=== PATIENT | female | born 1935 | race Caucasian/White ===

== ENCOUNTER → 2016-12-08 | Day surgery (SDC) | payer MEDICARE ==
[~2016-12-08] VITALS: Ht 154.9 cm; Wt 63.6 kg
[~2016-12-08] MED LIST: ACETAMINOPHEN 325 MG TAB PO PRN; AMLO5TAB2 PO; ASCO500T PO; ASPI81TA11 PO; CALC1TAB12 PO; CHLORHEXIDINE GLUCONATE 2 % 1 PACK (2 CLOTHS) TOPICAL PRN; CLON0.5T PO; CLON1TAB PO; HYALURONIDASE/LIDOCAINE/EPINEPHRINE/BUPIVACAINE 6 ML SYR LEFT EYE ONE; INSULIN HUMAN REGULAR 1,000 UNITS/10 ML VIAL SQ PRN; LACTATED RINGER'S 1000 ML IV PRN; LEVO50TA53 PO; LIDOCAINE HCL 1% PF 30 ML VIAL ONE; LISI-515 PO; LOVA10TA PO; METO100T PO; METOPROLOL TARTRATE 25 MG TAB PO PRN; OMEP20TA PO; POVIDONE IODINE 5% (ANTISEPSIS KIT) 4 APPLICATIONS EACH NARE PRN; PROPARACAINE HCL 0.5% OPHT SOLN 15 ML BTL LEFT EYE ONE; PROPOFOL 200 MG/20 ML AMP ONE; SODIUM CHLORID 0.9% 500 ML IV PRN; TEMA15CA PO; TOBRAMYCIN/DEXAMETHASONE OPTH OINT 3.5 GM TUBE ONE; TOPR100T PO
[2016-12-08] MEDS: PHENYLEPHRINE HCL 10% OPTH SOLN 5 ML BTL LEFT EYE SCH ×4 (06:50→07:05)
[2016-12-08] MEDS: TROPICAMIDE 1% OPHT SOLN 15 ML BTL LEFT EYE SCH ×4 (06:50→07:05)
[2016-12-08] MEDS: FLURBIPROFEN 0.03% OPHT SOLN 2.5 ML BTL LEFT EYE SCH ×4 (06:50→07:05)
[2016-12-08] MEDS: CYCLOPENTOLATE HCL 1% OPHT SOLN 2 ML BTL LEFT EYE SCH ×4 (06:50→07:05)
[2016-12-08 07:00] VITALS: PULSE 66
[2016-12-08 07:08] VITALS: BP 190/84; PULSE 68; RESP 20; TEMP 98.2; O2SAT 98
[2016-12-08 07:28] VITALS: PULSE 63
[2016-12-08 09:00] VITALS: BP 163/79; PULSE 90; RESP 16; TEMP 97.8; O2SAT 95
--- NOTE | 2016-12-08 10:50 | MP ---
cc: JULIOCESAR BANSAL M.D. [facility] #: [id number] DATE: 12/08/2016 PREOPERATIVE DIAGNOSIS: Visually significant cataract left eye. POSTOPERATIVE DIAGNOSIS: Visually significant cataract left eye. OPERATION: Phacoemulsification with posterior chamber lens implantation, left eye. SURGEON: Juliocesar Bansal MD ANESTHESIA: Retrobulbar with MAC. COMPLICATIONS: None. PROCEDURE: After informed consent was obtained, the patient was brought into the operative suite and placed on appropriate monitors by the Anesthesia Service. The patient had received a prior retrobulbar injection of local anesthetic by the Anesthesia Service in the holding area. The patient's operative eye was then prepped and draped in the usual sterile fashion. A wire lid speculum was placed. A paracentesis incision was made in the peripheral cornea with a 1 mm nabil keratome. The anterior chamber was filled with viscoelastic. The anterior chamber was then entered through a stepped, clear corneal incision using a sharp 3 mm nabil keratome. A circular tear capsulorrhexis was then made with a bent needle cystitome. Following hydrodissection of the lens nucleus with balanced saline, phacoemulsification of the nucleus was performed using a modified chopping technique. The remaining cortex was removed with irrigation/aspiration. The prior two procedures were both performed using the handpieces of the [employer] phaco unit. The capsular bag was then filled with viscoelastic. The intraocular lens was then injected into the capsular bag and positioned. The type of intraocular lens and its power can be found elsewhere in this chart. The remaining viscoelastic was then removed from the anterior chamber with the IA handpiece. The anterior chamber was reformed with balanced saline. The wound was then closed securely with stromal hydration. It was found to be watertight to an intraocular pressure of at least 30 mmHg by palpation. A small amount of balanced salt solution was then removed through the paracentesis site and the intraocular pressure at the end of the case was approximately 20 by palpation. All drapes were then removed. TobraDex ointment was then placed in the eye, which was closed beneath a semi-pressure patch dressing. The patient tolerated this procedure well and left the operating room awake and alert. The patient is to follow-up in my office in the morning. MD LAISHA Ham/SSB /10:29 AM /10:47 AM
== END | disposition home or self-care (01) ==
LOC: PHSDC 06:04
PROVIDERS: ATTEND Optometrist Occupational Vision
DX: H25.812 Combined forms of age-related cataract, left eye (principal); H04.123 Dry eye syndrome of bilateral lacrimal glands; H34.8312 Tributary (branch) retinal vein occlusion, right eye, stable; G25.0 Essential tremor; E78.5 Hyperlipidemia, unspecified; I12.9 Hypertensive chronic kidney disease with stage 1 through stage 4 chronic kidney disease, or unspecified chronic kidney disease; N18.9 Chronic kidney disease, unspecified; K21.9 Gastro-esophageal reflux disease without esophagitis; E03.9 Hypothyroidism, unspecified; G47.00 Insomnia, unspecified; M85.80 Other specified disorders of bone density and structure, unspecified site; L71.9 Rosacea, unspecified; R49.0 Dysphonia; G51.0 Bell's palsy; F43.23 Adjustment disorder with mixed anxiety and depressed mood; I70.0 Atherosclerosis of aorta; Z96.1 Presence of intraocular lens; Z79.82 Long term (current) use of aspirin; Z79.899 Other long term (current) drug therapy
CPT/HCPCS: 00142; 66984; J7040; V2632

== ENCOUNTER 2017-04-22 09:22 | Inpatient (IN) | payer MEDICARE ==
[2017-04-22] VITALS (9 sets, daily range): BP systolic 125–200; BP diastolic 59–82; PULSE 63–87; RESP 14–20; TEMP 97.5–98.4; O2SAT 95–100
[~2017-04-22] VITALS: Ht 165.1 cm; Wt 65.9 kg
[~2017-04-22 09:22] MED LIST changes: -ACETAMINOPHEN 325 MG TAB PO PRN; -ASPI81TA11 PO; +ASPI81TA23 PO; -CHLORHEXIDINE GLUCONATE 2 % 1 PACK (2 CLOTHS) TOPICAL PRN; -CLON0.5T PO; -HYALURONIDASE/LIDOCAINE/EPINEPHRINE/BUPIVACAINE 6 ML SYR LEFT EYE ONE; -INSULIN HUMAN REGULAR 1,000 UNITS/10 ML VIAL SQ PRN; -LACTATED RINGER'S 1000 ML IV PRN; -LIDOCAINE HCL 1% PF 30 ML VIAL ONE; -METO100T PO; -METOPROLOL TARTRATE 25 MG TAB PO PRN; -OMEP20TA PO; +OMEP20TA93 PO; -POVIDONE IODINE 5% (ANTISEPSIS KIT) 4 APPLICATIONS EACH NARE PRN; -PROPARACAINE HCL 0.5% OPHT SOLN 15 ML BTL LEFT EYE ONE; -PROPOFOL 200 MG/20 ML AMP ONE; -SODIUM CHLORID 0.9% 500 ML IV PRN; -TOBRAMYCIN/DEXAMETHASONE OPTH OINT 3.5 GM TUBE ONE
[2017-04-22] MEDS ORDERED: CODOIL2 PO (09:46)
[2017-04-22] MEDS ORDERED: METR0.7533 TOPICAL (09:46)
--- NOTE | 2017-04-22 10:54 | PD ---
HPI Chief Complaint: Fall Time Seen by Provider: 09:46 Travel History International Travel<30 days: No Contact w/Intl Traveler<30days: No Traveled to known affect area: No History of Present Illness HPI 82yo F with PMH of HTN, HLD, hypothyroidism was sent here from her PMD's office for CT scan. Pt said she got up to go to the bathroom in the middle of the night 2 days ago and was half asleep and when she tried to climb back into bed she slipped and hit her face on the bedside table. Denies any LOC, dizziness, chest pain, sob, n/v, abdominal pain, focal weakness or numbness. Pt had headache but no longer has any headache right now. As per paperwork from the clinic visit today, "patient has elected to go to ER as we cannot complete outpatient CT at this time." Pt's friend is with her and said she is acting like her normal self. PFSH Past Medical History Autoimmune Disease: No Blood Disorders: No Anxiety: Yes Depression: Yes (MILD) Heart Rhythm Problems: Yes (TACHYCARDIA) Cancer: No Cardiovascular Problems: Yes (ATHEROSCLEROSIS OF AORTA) High Cholesterol: No Chemotherapy: No Chest Pain: No Congestive Heart Failure: No Diabetes: No Diminished Hearing: Yes ([place]) Endocrine: Yes Gastrointestinal Disorders: Yes (GERD, CONSTIPATION/ DIARRHEA) GERD: Yes Genitourinary: Yes (OVERACTIVE BLADDER) Hepatitis: No Hiatal Hernia: No Hypertension: Yes Immune Disorder: No Medical other: Yes (INSOMNIA) Musculoskeletal: Yes (ARTHRITIS) Neurologic: Yes (BENIGN ESSENTIAL TREMOR, SPASMODIC DYSPHONIA, BELLS PALSY) Psychiatric: Yes (ANXIETY, ADJUSTMENT DISORDER WITH DEPRESSED MOOD) Reproductive: No Respiratory: No Immunizations Current: Yes Myocardial Infarction: No Radiation Therapy: No Thyroid Disease: Yes (HYPOTHYROIDISM) Menopausal: Yes Past Surgical History Abdominal Surgery: Yes (APPENDECTOMY) AICD: No Appendectomy: Yes Cardiac Surgery: No Ear Surgery: No Endocrine Surgery: No Eye Surgery: Yes (RIGHT PHACO CATARACT) Genitourinary Surgery: No Gynecologic Surgery: Yes (HYSTERECTOMY) Hysterectomy: Yes Joint Replacement: No Neurologic Surgery: No Oral Surgery: Yes (TONSILLECTOMY) Pacemaker: No Thoracic Surgery: Yes (LEFT BREAST BIOPSY) Tonsillectomy: Yes Other Surgery: Yes Social History Alcohol Use: No Tobacco Use: No Substance Use: No Allergies-Medications (Allergen,Severity, Reaction): Coded Allergies: codeine (Unverified Allergy, Severe, Nausea/Vomiting, 04/22/17) meperidine (Unverified Allergy, Severe, Nausea/Vomiting, 04/22/17) metoprolol (Unverified Allergy, Severe, Arrhythmias, 04/22/17) penicillin G (Unverified Allergy, Severe, pt denies allergy, 04/22/17) risedronate sodium (Unverified Allergy, Mild, 04/22/17) PT IS UNCERTAIN IF SHE IS ALLERGIC TO THIS MEDICATION Reported Meds & Prescriptions Reported Meds & Active Scripts Active Reported Rosadan Topical 0.75% (Metronidazole Topical 0.75%) 0.75% Gel 1 Applic TOPICAL BID Cod Liver Oil 5,000-500 Unit/5Ml Oil 5 Ml PO DAILY Lovastatin 10 Mg Tab 10 Mg PO DAILY Clonazepam 1 Mg Tab 1 Mg PO BID Toprol XL (Metoprolol Succinate) 100 Mg Tab 100 Mg PO HS Amlodipine (Amlodipine Besylate) 5 Mg Tab 5 Mg PO DAILY Aspirin EC (Aspirin) 81 Mg Tabdr 81 Mg PO DAILY Calcium 500 +D (Calcium Carbonate-Cholecalciferol) 500-400 Mg-Unit Tab 1 Tab PO DAILY Levoxyl (Levothyroxine Sodium) 50 Mcg Tab 50 Mcg PO DAILY Lisinopril 20 Mg Tab 20 Mg PO DAILY Omeprazole 20 Mg Tab 20 Mg PO DAILY Temazepam 15 Mg Cap 15 Mg PO HS PRN Ascorbic Acid 500 Mg Tab 500 Mg PO DAILY Review of Systems Except as stated in HPI: all other systems reviewed are Neg Physical Exam Narrative GENERAL: 82yo F not in distress. SKIN: Focused skin assessment warm/dry. HEAD: Ecchymoses in left maxilla. Some ttp occiput but no swelling or bleeding. EYES: Pupils equal and round. No scleral icterus. No injection or drainage. ENT: No nasal bleeding or discharge. Mucous membranes pink and moist. NECK: Trachea midline. No JVD. CARDIOVASCULAR: Regular rate and rhythm. No murmur appreciated. RESPIRATORY: No accessory muscle use. Clear to auscultation. Breath sounds equal bilaterally. GASTROINTESTINAL: Abdomen soft, non-tender, nondistended. MUSCULOSKELETAL: RUE: +Ecchymose and swelling in thumb and wrist with some ttp. Radial pulse 2+. Sensation intact. Left hand: Mild erythema dorsum of left hand. No ttp. Radial pulse 2+. Sensation intact. NEUROLOGICAL: Awake and alert. No obvious cranial nerve deficits. Motor grossly within normal limits. Stuttering but friend said this is her normal speech. Data Data Last Documented VS Vital Signs Date Time Temp Pulse Resp B/P (MAP) Pulse Ox O2 Delivery O2 Flow Rate FiO2 04/22/17 13:00 64 14 163/71 (101) 96 Room Air 04/22/17 09:[address] Brain W/O Iv Contrast(Rout) (04/22/17 ) Ct Cerv Spine W/O Contrast (04/22/17 ) Ct Facial Bones W/O Iv Cont (04/22/17 ) Hand, Limited (2vws) (04/22/17 ) Hand, Limited (2vws) (04/22/17 ) Wrist, Limited (Ap&Lat) (04/22/17 ) Acetaminophen (Tylenol) (04/22/17 11:15) Complete Blood Count With Diff (04/22/17 11:45) Basic Metabolic Panel (Bmp) (04/22/17 11:45) Prothrombin Time / Inr (Pt) (04/22/17 11:45) Act Partial Throm Time (Ptt) (04/22/17 11:45) Type And Screen (04/22/17 11:45) Consult Neurosurgery (04/22/17 ) (Hub Use Only)Inp Phy Cons/Ref (04/22/17 ) Admit Order (Ed Use Only) (04/22/17 13:23) Labs Laboratory Tests Test 04/22/17 12:00 White Blood Count 5.6 TH/MM3 Red Blood Count 4.63 MIL/MM3 Hemoglobin 13.6 GM/DL Hematocrit 40.7 % Mean Corpuscular Volume 87.8 FL Mean Corpuscular Hemoglobin 29.4 PG Mean Corpuscular Hemoglobin Concent 33.5 % Red Cell Distribution Width 13.0 % Platelet Count 179 TH/MM3 Mean Platelet Volume 9.1 FL Neutrophils (%) (Auto) 54.4 % Lymphocytes (%) (Auto) 34.2 % Monocytes (%) (Auto) 8.0 % Eosinophils (%) (Auto) 3.0 % Basophils (%) (Auto) 0.4 % Neutrophils # (Auto) 3.0 TH/MM3 Lymphocytes # (Auto) 1.9 TH/MM3 Monocytes # (Auto) 0.4 TH/MM3 Eosinophils # (Auto) 0.2 TH/MM3 Basophils # (Auto) 0.0 TH/MM3 CBC Comment DIFF FINAL Differential Comment Prothrombin Time 10.7 SEC Prothromb Time International Ratio 1.1 RATIO Activated Partial Thromboplast Time 26.3 SEC Blood Urea Nitrogen 10 MG/DL Creatinine 0.61 MG/DL Random Glucose 90 MG/DL Calcium Level 8.9 MG/DL Sodium Level 140 MEQ/L Potassium Level 4.1 MEQ/L Chloride Level 106 MEQ/L Carbon Dioxide Level 28.3 MEQ/L Anion Gap 6 MEQ/L Estimat Glomerular Filtration Rate 94 ML/MIN MDM Medical Decision Making Medical Screen Exam Complete: Yes Emergency Medical Condition: Yes Differential Diagnosis Contusion vs. ICH vs. fracture Narrative Course 82yo F sent her for CT scan after what appears to be mechanical fall 2 days ago. Pt is with her friend and is acting like herself. CT cervical spine showed no acute fracture or prevertebral soft tissue swelling. Bilateral hand xray negative. Xray right wrist negative. CT brain showed two left parafalcine high density collections within left parietal region measuring 2.3 x 0.6cm and 0.9cm x 0.4cm suggestive of probably acute subdural hematomas. CT facial showed acute fracture lateral wall of left orbit as well as anterior, medial and inferior hernández of left maxillary sinus. Consult placed for maxillofacial and discussed with Dr. Cardenas who is aware of the patient. Pt denies any visual changes and extraocular muscles intact. Labs reviewed, no leukocytosis. H/H normal. BMP unremarkable. Discussed with Dr. Otto ( neurosurgery) and he came to evaluate the patient. Recommends repeat CT brain in morning and neurochecks Q2hr. Discussed with instrumentation technologist Dr. Mcguire and accepted to his service. Pt's son Urbano is the power of commercial real estate attorney and lives in [place] [phone]. Critical Care Narrative Aggregate critical care time was 40 minutes. Time to perform other separately billable procedures was not included in the critical care time. My time did not include minutes spent treating any other patients simultaneously or on activities that did not directly contribute to the patient's treatment. The services I provided to this patient were to treat and/or prevent clinically significant deterioration that could result in: cardiovascular collapse or . I provided critical care services requiring my management, as noted below: Chart data review, documentation time, medication orders and management, vital sign assessments/reviewing monitor data, ordering and reviewing lab tests, ordering and interpreting/reviewing x- rays and diagnostic studies, care of the patient and discussion of the patient with the admitting physicians. Diagnosis Primary Impression: Subdural bleeding Admitting Information Admitting Physician Requests: Fadumo Villanueva DO Apr 22, 2017 10:54
--- NOTE | 2017-04-22 11:00 | RADRPT ---
EXAM DATE/TIME: 04/22/2017 10:19 [facility] COMPARISON: No previous studies available for comparison. INDICATIONS : Trauma, fall two days ago onto table. RADIATION DOSE: 56.35 CTDIvol (mGy) MEDICAL HISTORY : Hypertension. SURGICAL HISTORY : Hysterectomy. ENCOUNTER: Initial ACUITY: 2 days PAIN SCALE: 5/10 LOCATION: Bilateral head TECHNIQUE: Multiple contiguous axial images were obtained of the head. Using automated exposure control and adj ustment of the mA and/or kV according to patient size, radiation dose was kept as low as reasonably a chievable to obtain optimal diagnostic quality images. DICOM format image data is available electro nically for review and comparison. FINDINGS: CEREBRUM: The ventricles are normal for age. There is evidence of two left parafalcine high density collections within the left parietal region measuring 2.3 x 0.6 cm and 0.9 x 0.4 cm suggestive of probable acute subdural hematomas. No midline shift is noted. POSTERIOR FOSSA: The cerebellum and brainstem are intact. The 4th ventricle is midline. The cerebellopontine angle i s unremarkable. EXTRACRANIAL: The visualized portion of the orbits is intact. SKULL: The calvaria is intact. No evidence of skull fracture. CONCLUSION: Two left parafalcine high density collections within the left parietal region measuri ng 2.3 x 0.6 cm and 0.9 x 0.4 cm suggestive of probable acute subdural hematomas. Sedrick Fernandez MD on April 22, 2017 at 10:54 Board Certified Radiologist. This report was verified electronically.
--- NOTE | 2017-04-22 11:05 | RADRPT ---
EXAM DATE/TIME: 04/22/2017 10:23 [facility] COMPARISON: No previous studies available for comparison. INDICATIONS : Trauma, fall two days ago onto table. RADIATION DOSE: 26.35 CTDIvol (mGy) MEDICAL HISTORY : Hypertension. SURGICAL HISTORY : Hysterectomy. ENCOUNTER: Initial ACUITY: 2 days PAIN SCORE: 6/10 LOCATION: Left cheek TECHNIQUE: Volumetric scanning of the facial bones was performed. Using automated exposure control and adjustme nt of the mA and/or kV according to patient size, radiation dose was kept as low as reasonably achiev able to obtain optimal diagnostic quality images. DICOM format image data is available electronicall y for review and comparison. FINDINGS: ORBITS: There is subtle acute fracture involving the lateral wall the left orbit. The retroconal structures h ave a normal configuration. No radiopaque foreign bodies are seen. NASAL BONE: The nasal bone and maxillary spine are intact ZYGOMATIC ARCHES: Symmetric without evidence of fracture. SINUSES: There are acute fractures involving the anterior, medial and inferior hernández of the left maxillary sin us. Minimal mucosal thickening is noted involving left maxillary sinus. The ethmoid and frontal sinus es are intact. No air-fluid levels seen. NASAL CAVITY: The nasal septum is intact and midline. The lacrimal ducts are intact. SOFT TISSUES: No radiopaque foreign bodies seen. No soft-tissue swelling is seen. INTRACRANIAL: No intracranial air seen. CRIBIFORM PLATE: Grossly intact. CONCLUSION: 1. Acute fractures involving the lateral wall of left orbit, as well as the anterior, medial and infe rior hernández of the left maxillary sinus. 2. Minimal mucosal thickening is noted involving the maxillary sinus Sedrick Fernandez MD on April 22, 2017 at 10:58 Board Certified Radiologist. This report was verified electronically.
--- NOTE | 2017-04-22 11:13 | RADRPT ---
EXAM DATE/TIME: 04/22/2017 10:23 [facility] COMPARISON: No previous studies available for comparison. INDICATIONS : Trauma, fall two days ago onto table. RADIATION DOSE: 22.22 CTDIvol (mGy) MEDICAL HISTORY : Hypertension. SURGICAL HISTORY : Hysterectomy. ENCOUNTER: Initial ACUITY: 1 day PAIN SCALE: 5/10 LOCATION: Bilateral neck TECHNIQUE: Volumetric scanning of the cervical spine was performed. Multiplanar reconstructions in the sagittal, coronal and oblique axial planes were performed. Using automated exposure control and adjustment o f the mA and/or kV according to patient size, radiation dose was kept as low as reasonably achievable to obtain optimal diagnostic quality images. DICOM format image data is available electronically f or review and comparison. FINDINGS: There is no acute fracture or prevertebral soft tissue swelling. Cervical spondylosis is noted at C5- 6, C6-7, and to lesser extent at C3-4 and C4-5. Moderate spinal stenosis is noted at C5-6 and mild sp inal stenosis is noted at C4-5 and C6-7. Moderate bilateral foraminal narrowing is noted at C3-4, C4- 5, C5-6 and C6-7 and mild bilateral foraminal narrowing is noted C7-T1. The bony relationship and ali gnment between C1 and C2 is well maintained. CONCLUSION: 1. No acute fracture or prevertebral soft tissue swelling. 2. Moderate spinal stenosis at C5-6 and mild spinal stenosis at C4-5 and C6-7. 3. Moderate bilateral foraminal narrowing at C3-4, C4-5, C5-6 and C6-7 and mild bilateral foraminal n arrowing at C7-T1. Sedrick Fernandez MD on April 22, 2017 at 11:05 Board Certified Radiologist. This report was verified electronically.
[2017-04-22] MEDS ORDERED: ACETAMINOPHEN 500 MG CPLT PO ONE (11:15)
--- NOTE | 2017-04-22 12:12 | RADRPT ---
EXAM DATE/TIME: 04/22/2017 11:13 [facility] COMPARISON: No previous studies available for comparison. INDICATIONS : Left hand pain, bruising post fall today MEDICAL HISTORY : None. SURGICAL HISTORY : None. ENCOUNTER: Initial ACUITY: 1 day PAIN SCORE: 5/10 LOCATION: Left entire hand FINDINGS: No acute fracture or dislocation is noted. Diffuse osteoporosis is noted. No significant joint space narrowing is noted. CONCLUSION: 1. No acute fracture or dislocation. 2. Diffuse osteoporosis. 3. No significant joint space narrowing noted. Sedrick Fernandez MD on April 22, 2017 at 12:08 Board Certified Radiologist. This report was verified electronically.
--- NOTE | 2017-04-22 12:13 | RADRPT ---
EXAM DATE/TIME: 04/22/2017 11:16 [facility] COMPARISON: HAND RIGHT LIMITED (2VWS), April 22, 2017, 11:17. INDICATIONS : Right wrist pain post fall today MEDICAL HISTORY : None. SURGICAL HISTORY : None. ENCOUNTER: Initial ACUITY: 1 day PAIN SCORE: 5/10 LOCATION: Right entire wrist FINDINGS: Osteoporosis is noted. There is no acute fracture or dislocation of the right wrist. Possible old unu nited ulnar styloid process fracture is noted. CONCLUSION: 1. No acute fracture or dislocation. 2. Possible old ununited ulnar styloid fracture. 3. Diffuse osteoporosis. Sedrick Fernandez MD on April 22, 2017 at 12:10 Board Certified Radiologist. This report was verified electronically.
--- NOTE | 2017-04-22 12:16 | RADRPT ---
EXAM DATE/TIME: 04/22/2017 11:17 [facility] COMPARISON: No previous studies available for comparison. INDICATIONS : Right hand pain, bruising post fall MEDICAL HISTORY : None. SURGICAL HISTORY : None. ENCOUNTER: Initial ACUITY: 1 day PAIN SCORE: 5/10 LOCATION: Right entire hand FINDINGS: Diffuse osteoporosis is noted. There is no acute fracture or dislocation. Mild osteoarthritis is note d involving the first carpometacarpal joint, scaphotrapezium and scaphotrapezoid joints and the inter phalangeal joints of the right hand. Probable old ununited ulnar styloid process fracture is noted. CONCLUSION: 1. No acute fracture or dislocation. 2. Mild osteoarthritis as described above. 3. Probable old ununited ulnar styloid process fracture. 4. Diffuse osteoporosis. Sedrick Fernandez MD on April 22, 2017 at 12:12 Board Certified Radiologist. This report was verified electronically.
[2017-04-22 12:23] LABS: BASOPHIL % 0.4 % (0.0-2.0); EOSINOPHIL # 0.2 TH/MM3 (0-0.4); HEMATOCRIT 40.7 % (35.0-46.0); HEMO FLAGS DIFF FINAL; LYMPH % 34.2 % (9.0-44.0); LYMPHOCYTE # 1.9 TH/MM3 (1.0-4.8); MEAN CELL VOLUME 87.8 FL (80.0-100.0); MEAN CORPUSCULAR HEMOGLOBIN 29.4 PG (27.0-34.0); MEAN CORPUSCULAR HGB CONC 33.5 % (32.0-36.0); NEUT % 54.4 % (16.0-70.0); PLATELET COUNT 179 TH/MM3 (150-450); RED BLOOD COUNT 4.63 MIL/MM3 (4.00-5.30); WHITE BLOOD COUNT 5.6 TH/MM3 (4.0-11.0)
[2017-04-22 12:34] LABS: APTT (PATIENT) 26.3 SEC (24.3-30.1); INTERNATIONAL NORMALIZED RATIO 1.1 RATIO; PROTHROMBIN TIME - PATIENT 10.7 SEC (9.8-11.6)
[2017-04-22 12:41] LABS: BICARBONATE 28.3 MEQ/L (21.0-32.0); POTASSIUM 4.1 MEQ/L (3.5-5.1)
--- NOTE | 2017-04-22 13:01 | HHI.NSPN ---
fall History Interval History 82y/o female who sustained a fall at home 2 days ago. Denies LOC. Saw PCP today due to headache and sent to [facility] for CT. CT was abnormal and neurosurgery consult placed. Pt complains of mild headache which is intermittent. No neck pain PMH: Depression, tachycardia, hard of hearing, overactive bladder, GERD, diarrhea, Hypothyroidism,essential tremor, recent cataract surgery Allergies: codeine, demerol, metoprolol, penicillin, risedronate Meds: Lovastatin, clonazepam, Toprol XL, ASA, Temazepam, lisinopril, amlodipine System Review Comments see above Exam Results Vital Signs Date Time Temp Pulse Resp B/P (MAP) Pulse Ox O2 Delivery O2 Flow Rate FiO2 04/22/17 11:00 71 18 153/70 (97) 96 Room Air 04/22/17 09:26 98.2 Physical Examination Alert and awake, Follows commands, right handed, oriented x 3, CN: Hard of hearing Pupils equal and reactive Motor 5/5 Sensory intact to touch DTRs UE 1+ KJ 2+ ankle neg Silent babinski Lab, Micro, Other Results Labs reviewed CT of head evidence of small falcine hemorrhage CT of C spine deg changes Medical Decision Making Impression and Plan Imp: Falcine hemorrhage. No surgery needed Rec: observation in ICU Repeat CT in AM Neuro checks every 2 hours Total Minutes: 45 Wes Otto MD Apr 22, 2017 13:01
[2017-04-22] MEDS ORDERED: MISCELLANEOUS NURSING INFORMATION XX SCH (13:30)
[2017-04-22] MEDS ORDERED: LACTULOSE SYRUP 20 GM/30 ML CUP PO PRN (13:30)
[2017-04-22] MEDS ORDERED: SODIUM CHLORIDE 0.9% FLUSH 10 ML FLUSH IV FLUSH PRN (13:30)
[2017-04-22] MEDS ORDERED: MAGNESIUM HYDROXIDE SUSP 30 ML CUP PO PRN (13:30)
[2017-04-22] MEDS ORDERED: BISACODYL 10 MG SUPP RECTAL PRN (13:30)
[2017-04-22] MEDS ORDERED: CHLORHEXIDINE GLUCONATE 2 % 1 PACK (2 CLOTHS) TOP PRN (13:30)
[2017-04-22] MEDS ORDERED: RESP: ALBUTEROL 2.5 MG/IPRATROPIUM 0.5 MG NEB (PRN) INH (13:30)
[2017-04-22] MEDS ORDERED: SENNOSIDES 8.6 MG TAB PO PRN (13:30)
[2017-04-22] MEDS ORDERED: hydrALAZINE HCL 20 MG/ML VIAL IV PUSH PRN (13:45)
[2017-04-22] MEDS: SODIUM CHLOR 0.9% 1000 ML INJ 1,000 ML IV SCH (14:00)
--- NOTE | 2017-04-22 14:22 | MB ---
cc: CINDY STEINBERG DATE OF CONSULTATION: 04/22/2017. REASON FOR CONSULTATION / CHIEF COMPLAINT: Fall. HISTORY OF PRESENT ILLNESS: This is an 82-year-old female patient with multiple medical problems. She was seen today at her primary care physician's office and sent to [facility] for a CT scan. The patient reports that approximately two days ago she got up in the middle of the night and upon return to her bed, she slipped and fell hitting her face on the bedside table. She denies any loss of consciousness. Because of a persistent mild headache, she was seen by her primary care physician today and sent as stated above for a CT scan. Because of abnormal CT scan, neurosurgery consultation has been placed. Presently the patient complains of a mild headache, which is intermittent. She denies any other problems. PAST MEDICAL HISTORY: Her past medical history is remarkable for: 1. Atherosclerosis. 2. Tachycardia. 3. Depression. 4. Hard of hearing. 5. Gastroesophageal reflux disease (GERD). 6. Constipation. 7. Diarrhea. 8. Overactive bladder. 9. Insomnia. 10. Arthritis. 11. Benign essential tremor. 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 13. Anxiety. 14. Adjustment disorder. 15. Hypothyroidism. ALLERGIES: 1. CODEINE. 2. MEPERIDINE. 3. METOPROLOL. 4. PENICILLIN G. 5. RISEDRONATE. MEDICATIONS: Her medications include: 1. Lovastatin. 2. Clonazepam. 3. Toprol XL. 4. Amlodipine. 5. Aspirin. 6. Calcium. 7. Levoxyl. 8. Lisinopril. 9. Omeprazole. 10. Temazepam. 11. Ascorbic acid. 12. Cod liver. 13. rosadan topical. REVIEW OF SYSTEMS: Her review of systems is unremarkable except for those items mentioned above. PHYSICAL EXAMINATION: GENERAL PHYSICAL EXAM: Shows a well-developed anxious female in mild distress. She is alert and awake. VITAL SIGNS: Her vital signs at the present time include a temperature of 98.2, pulse of 71, respirations 18, blood pressure 153/70, pulse oximetry of 96%. HEAD: Examination of the head shows some ecchymosis in the area of the left orbit. NECK: The neck is supple with no pain. CHEST: Symmetrical. LUNGS: Clear. HEART: Regular rhythm with normal heart sounds. ABDOMEN: Abdomen soft and nontender. EXTREMITIES: Clear with some ecchymosis in the area of the hands bilaterally. NEUROLOGIC: Neurologically the patient is alert and awake. She follows commands well. She is oriented x3. She is right-handed. Cranial nerves II through XII are intact. She has a history of recent cataract surgery on the left. She is hard of hearing. Motor exam is 5+/5. Sensory exam is intact to touch. Deep tendon reflexes are 1+ in the upper extremities and 2+ at the knees jerks and absent in the knee jerks. She has silent Babinski bilaterally. IMAGING STUDIES: Review of a CT scan of the brain shows evidence of a falcine hemorrhage with a little mass effect. CT scan of the cervical spine shows degenerative changes. IMPRESSION: Traumatic falcine hemorrhage. PLAN: The plan is to admit the patient to the intensive care unit for observation overnight with neuro checks every two hours and head elevated with a repeat CT in the morning. This was discussed with the patient. MD JENNIFER Polanco/BELLA /1:04 PM /1:57 PM JOCELYN
--- NOTE | 2017-04-22 15:06 | HHI.HP ---
HPI Service Critical Care Medicine Primary Care Physician Da White D.O. Admission Diagnosis Subdural hematoma Diagnosis: (1) Acute subdural hemorrhage Diagnosis: Principal (2) Facial fracture due to fall Chief Complaint: S/p fall with acute SDH Travel History International Travel<30 Days: No Contact w/Intl Traveler <30 Da: No Traveled to Known Affected Are: No History of Present Illness 82 year old female with past medical history significant for hypertension, dyslipidemia, hypothyroidism, anxiety and depression. She was sent from her primary care doctor's office for a CT of the head due to a fall sustained 2 days ago. She slipped and fell and hit her face on a bedside table. Post fall she had a headache but hasn't resolved now. Stat CT of the head showed two left parafalcine subdural hemorrhages within the left parietal region measuring 2.3 x 0.6 cm and 0.[address] of the facial bones showed acute fractures involving the lateral wall of left orbit, anterior, medial and inferior hernández of the left maxillary sinus. I evaluated the patient in the ICU. Denies headache or any focal weakness. Had no seizures post fall. Patient is hypertensive. When necessary hydralazine ordered and home antihypertensives had been started. Neurosurgeon has seen the patient and as well as oral and maxillofacial surgeon. Follow-up CT of the head planned for a.m. 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 Dyslipidemia Past Surgical History Appendectomy Cataract surgery Hysterectomy Tonsillectomy Left breast biopsy Tonsillectomy Reported Medications Rosadan Topical 0.75% (Metronidazole Topical 0.75%) 0.75% Gel 1 Applic TOPICAL BID Cod Liver Oil 5,000-500 Unit/5Ml Oil 5 Ml PO DAILY Lovastatin 10 Mg Tab 10 Mg PO DAILY Clonazepam 1 Mg Tab 1 Mg PO BID Toprol XL (Metoprolol Succinate) 100 Mg Tab 100 Mg PO HS Amlodipine (Amlodipine Besylate) 5 Mg Tab 5 Mg PO DAILY Aspirin EC (Aspirin) 81 Mg Tabdr 81 Mg PO DAILY Calcium 500 +D (Calcium Carbonate-Cholecalciferol) 500-400 Mg-Unit Tab 1 Tab PO DAILY Levoxyl (Levothyroxine Sodium) 50 Mcg Tab 50 Mcg PO DAILY Lisinopril 20 Mg Tab 20 Mg PO DAILY Omeprazole 20 Mg Tab 20 Mg PO DAILY Temazepam 15 Mg Cap 15 Mg PO HS PRN Ascorbic Acid 500 Mg Tab 500 Mg PO DAILY Active Ordered Medications Reviewed Family History Not contributory Social History No alcohol or tobacco use Physical Exam Vital Signs Vital Signs Date Time Temp Pulse Resp B/P (MAP) Pulse Ox O2 Delivery O2 Flow Rate FiO2 04/22/17 13:00 64 14 163/71 (101) 96 Room Air 04/22/17 11:00 71 18 153/70 (97) 96 Room Air 04/22/17 09:54 65 15 200/74 (116) 99 Room Air 04/22/17 09:26 98.2 67 18 186/82 (116) 99 Physical Exam GENERAL: Elderly female not in any acute distress SKIN: Warm and dry HEAD: Ecchymoses in left maxillary region. EYES: Pupils equal and round. No scleral icterus. ENT: No nasal bleeding or discharge. Airway patent NECK: Trachea midline. No JVD. CARDIOVASCULAR: Regular rate and rhythm. No murmur appreciated. RESPIRATORY: No accessory muscle use. Clear to auscultation. GASTROINTESTINAL: Abdomen soft, non-tender, nondistended. MUSCULOSKELETAL: Swelling of right thumb and wrist. Sensation intact. Left hand , mild erythema pulses + NEUROLOGICAL: Awake and alert. No obvious cranial nerve deficits. Motor grossly within normal limits. Laboratory Laboratory Tests Test 04/22/17 12:00 White Blood Count 5.6 Red Blood Count 4.63 Hemoglobin 13.6 Hematocrit 40.7 Mean Corpuscular Volume 87.8 Mean Corpuscular Hemoglobin 29.4 Mean Corpuscular Hemoglobin Concent 33.5 Red Cell Distribution Width 13.0 Platelet Count 179 Mean Platelet Volume 9.1 Neutrophils (%) (Auto) 54.4 Lymphocytes (%) (Auto) 34.2 Monocytes (%) (Auto) 8.0 Eosinophils (%) (Auto) 3.0 Basophils (%) (Auto) 0.4 Neutrophils # (Auto) 3.0 Lymphocytes # (Auto) 1.9 Monocytes # (Auto) 0.4 Eosinophils # (Auto) 0.2 Basophils # (Auto) 0.0 CBC Comment DIFF FINAL Differential Comment Prothrombin Time 10.7 Prothromb Time International Ratio 1.1 Activated Partial Thromboplast Time 26.3 Blood Urea Nitrogen 10 Creatinine 0.61 Random Glucose 90 Calcium Level 8.9 Sodium Level 140 Potassium Level 4.1 Chloride Level 106 Carbon Dioxide Level 28.3 Anion Gap 6 Estimat Glomerular Filtration Rate 94 Result Diagram: 04/22/17 1200 04/22/[address] of the head showed two left parafalcine subdural hemorrhages left parietal region measuring 2.3 x 0.6 cm and 0.[address] of the facial bones showed acute fractures of the lateral wall of left orbit , anterior, medial and inferior hernández of the left maxillary sinus. Septic Shock Reassessment Septic shock perfusion: reassessment completed Caprini VTE Risk Assessment Caprini VTE Risk Assessment: Mod/High Risk (score >= 2) VTE Pharm Contraindication: Hemorrhage Caprini Risk Assessment Model Point Value = 1 Point Value = 2 Point Value = 3 Point Value = 5 Age 41-60 Minor surgery BMI > 25 kg/m2 Swollen legs Varicose veins or History of unexplained or recurrent spontaneous Oral contraceptives or hormone replacement Sepsis (< 1 month) Serious lung disease, including pneumonia (< 1 month) Abnormal pulmonary function Acute myocardial infarction Congestive heart failure (< 1 month) History of inflammatory bowel disease Medical patient at bed rest Age 61-74 Arthroscopic surgery Major open surgery (> 45 min) Laparoscopic surgery (> 45 min) Malignancy Confined to bed (> 72 hours) Immobilizing plaster cast Central venous access Age >= 75 History of VTE Family history of VTE Factor V Leiden Prothrombin [id number] Lupus anticoagulant Anticardiolipin antibodies Elevated serum homocysteine Heparin-induced thrombocytopenia Other congenital or acquired thrombophilia Stroke (< 1 month) Elective arthroplasty Hip, pelvis, or leg fracture Acute spinal cord injury (< 1 month) Prophylaxis Regimen Total Risk Factor Score Risk Level Prophylaxis Regimen 0-1 Low Early ambulation 2 Moderate Order ONE of the following: *Sequential Compression Device (SCD) *Heparin 5000 units SQ BID 3-4 Higher Order ONE of the following medications: *Heparin 5000 units SQ TID *Enoxaparin/Lovenox 40 mg SQ daily (WT < 150 kg, CrCl > 30 mL/min) *Enoxaparin/Lovenox 30 mg SQ daily (WT < 150 kg, CrCl > 10-29 mL/min) *Enoxaparin/Lovenox 30 mg SQ BID (WT < 150 kg, CrCl > 30 mL/min) AND/OR *Sequential Compression Device (SCD) 5 or more Highest Order ONE of the following medications: *Heparin 5000 units SQ TID (Preferred with Epidurals) *Enoxaparin/Lovenox 40 mg SQ daily (WT < 150 kg, CrCl > 30 mL/min) *Enoxaparin/Lovenox 30 mg SQ daily (WT < 150 kg, CrCl > 10-29 mL/min) *Enoxaparin/Lovenox 30 mg SQ BID (WT < 150 kg, CrCl > 30 mL/min) AND *Sequential Compression Device (SCD) Assessment and Plan Assessment and Plan NEURO: Status post fall Acute falls and subdural hemorrhage Left orbital and maxillary sinus fracture - Neurosurgery has already seen patient no surgical intervention needed at this time - CT of the head in a.m. - Keep sodium normal - OMFS consult appreciated, no surgical indication RESP: - Nasal cannula oxygen - Aggressive pulmonary toilet CV: Uncontrolled hypertension History of hypertension Dyslipidemia - Normal saline IV fluids 100 ml per hour - Hydralazine 20 mg IV every 6 hours when necessary for SBP more than 160. Target systolic blood pressure less than 160 - Continue home medications including lisinopril, metoprolol, amlodipine, continue statin GI: - Heart healthy diet - IV famotidine : - Monitor renal function closely. Continue IV hydration ID: - No antibiotics at this time HEME: - Monitor CBC, CMP, coags ENDO: - Electrolyte replacement per protocol PROPH: - Bilateral lower extremity SCDs, SATNAM. Avoid chemical DVT prophylaxis LINES: - Utilize peripheral IVs, central line if needed CC time 32 min Condition is critically ill but stable. She has sustained a fall with falls and subdural hemorrhage, expansion of which can cause life-threatening complications including . At this time will treat conservatively with blood pressure control. Repeat CT of the head in a.m. Code Status Full Discussed Condition With Dr. Francisco Problem Qualifiers (1) Facial fracture due to fall: Baldo Mcguire MD Apr 22, 2017 15:06
--- NOTE | 2017-04-22 15:32 | PD.CONS ---
History of Present Illness Service Maxillofacial Consult Requested By Primary team Reason for Consult L maxillary fracture Primary Care Physician Da White D.O. Diagnoses: History of Present Illness 82F w/ multiple medical problems, referred here for CT by PCP after GLF 2 days ago. Pt fell on the way to the bathroom in the night. She hit her L cheek on a table corner. No LOC. No direct eye injury. No vision changes, blurriness, double vision. Facial pain minimal. Complains of mild headache. No bite changes/abnormalities/sensory changes. 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 Atherosclerosis. 2. Tachycardia. 3. Depression. 4. Hard of hearing. 5. Gastroesophageal reflux disease (GERD). 6. Constipation. 7. Diarrhea. 8. Overactive bladder. 9. Insomnia. 10. Arthritis. 11. Benign essential tremor. 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 13. Anxiety. 14. Adjustment disorder. 15. Hypothyroidism. Past Surgical History Hyerectomy, tonsils, appy, 'foot surgery' Reported Medications Med list reviewed From chart 1. Lovastatin. 2. Clonazepam. 3. Toprol XL. 4. Amlodipine. 5. Aspirin. 6. Calcium. 7. Levoxyl. 8. Lisinopril. 9. Omeprazole. 10. Temazepam. 11. Ascorbic acid. 12. Cod liver. Family History Non contributory to presenting complaint Social History No tobacco Physical Exam Vital Signs Vital Signs Date Time Temp Pulse Resp B/P (MAP) Pulse Ox O2 Delivery O2 Flow Rate FiO2 04/22/17 15:06 04/22/17 13:00 64 14 163/71 (101) 96 Room Air 04/22/17 11:00 71 18 153/70 (97) 96 Room Air 04/22/17 09:54 65 15 200/74 (116) 99 Room Air 04/22/17 09:26 98.2 67 18 186/82 (116) 99 Physical Exam GENERAL: This is a well-nourished, well-developed patient, in no apparent distress. SKIN: No rashes, ecchymoses or lesions. Cool and dry. L malar eminence w/ superficial 1cm abrasion no involving the eyelid proper HEAD: Normocephalic. No temporal or scalp tenderness. EYES: Pupils equal round and reactive. Extraocular motions intact. No scleral icterus. No injection or drainage. ENT: Nose without bleeding, purulent drainage or septal hematoma. Throat without erythema, tonsillar hypertrophy or exudate. Uvula midline. Airway patent. NECK: Trachea midline. No JVD or lymphadenopathy. Supple, nontender, no meningeal signs. RESPIRATORY: Non labored breathing MUSCULOSKELETAL: Extremities without clubbing, cyanosis, or edema. No joint tenderness, effusion, or edema noted. No calf tenderness. NEUROLOGICAL: Awake and alert. Cranial nerves II through XII intact. -III sensation intact No focal deficits Non ttp over all facial bones including mandible, palate, and teeth except for very minimal ttp directly over L malar eminence No enopthalmos Laboratory Laboratory Tests Test 04/22/17 12:00 White Blood Count 5.6 Red Blood Count 4.63 Hemoglobin 13.6 Hematocrit 40.7 Mean Corpuscular Volume 87.8 Mean Corpuscular Hemoglobin 29.4 Mean Corpuscular Hemoglobin Concent 33.5 Red Cell Distribution Width 13.0 Platelet Count 179 Mean Platelet Volume 9.1 Neutrophils (%) (Auto) 54.4 Lymphocytes (%) (Auto) 34.2 Monocytes (%) (Auto) 8.0 Eosinophils (%) (Auto) 3.0 Basophils (%) (Auto) 0.4 Neutrophils # (Auto) 3.0 Lymphocytes # (Auto) 1.9 Monocytes # (Auto) 0.4 Eosinophils # (Auto) 0.2 Basophils # (Auto) 0.0 CBC Comment DIFF FINAL Differential Comment Prothrombin Time 10.7 Prothromb Time International Ratio 1.1 Activated Partial Thromboplast Time 26.3 Blood Urea Nitrogen 10 Creatinine 0.61 Random Glucose 90 Calcium Level 8.9 Sodium Level 140 Potassium Level 4.1 Chloride Level 106 Carbon Dioxide Level 28.3 Anion Gap 6 Estimat Glomerular Filtration Rate 94 Result Diagram: 04/22/17 1200 04/22/[address] personally reviewed. ? L orbit fx, but L maxillary sinus ant/med/inf wall fx appreciated. No fx of palate, pterygoid processes, orbital floor, or zygomatic arch. non displaced fracture fragments Following this, I then separately reviewed the CT w/ a second radiologist who was in the reading room at the time, who also concurred w/ original read as well as my own. Assessment and Plan Assessment and Plan L maxillary sinus fx stable No effects on mastication or eye fxn No apparent deformity No prolapse of orbital contents, therefore enopthalmos should not develop and is absent currently No restrictions except fall prevention Please call w/ further concerns Brien Potts MD Apr 22, 2017 15:32
[2017-04-22] MEDS: amLODIPine BESYLATE 5 MG TAB PO SCH (17:00)
[2017-04-22] MEDS: clonazePAM 1 MG TAB PO SCH (18:50)
[2017-04-22] MEDS ORDERED: METRONIDAZOLE 0.75% TOPICAL SCH (21:00)
[2017-04-22] MEDS ORDERED: METRONIDAZOLE TOPICAL SCH (21:00)
[2017-04-22] MEDS: DOCUSATE SODIUM 50 MG/SENNA 8.6 MG TAB PO SCH (21:09)
[2017-04-22] MEDS: SODIUM CHLORIDE 0.9% FLUSH 10 ML FLUSH IV FLUSH SCH (21:09)
[2017-04-22] MEDS: METOPROLOL SUCCINATE 50 MG EXTENDED RELEASE TAB PO SCH (21:09)
[2017-04-22] MEDS: FAMOTIDINE 20 MG/2 ML VIAL IV PUSH SCH (21:09)
[2017-04-22] MEDS: TEMAZEPAM 15 MG CAP PO PRN (22:33)
[2017-04-22] MEDS: ACETAMINOPHEN 325 MG TAB PO PRN (22:33)
[2017-04-23] VITALS (8 sets, daily range): BP systolic 102–126; BP diastolic 50–80; PULSE 56–80; RESP 12–20; TEMP 97.6–98.3; O2SAT 93–99
[2017-04-23] MEDS: SODIUM CHLOR 0.9% 1000 ML INJ 1,000 ML IV SCH (01:55)
[2017-04-23] MEDS: CHLORHEXIDINE GLUCONATE 2 % 1 PACK (2 CLOTHS) TOP SCH (04:00)
[2017-04-23 04:50] LABS: AUTOMATED NEUTROPHIL # 3.1 TH/MM3 (1.8-7.7); BASOPHIL % 0.6 % (0.0-2.0); EOSINOPHIL # 0.1 TH/MM3 (0-0.4); EOSINOPHIL % 2.2 % (0.0-4.0); HEMATOCRIT 42.9 % (35.0-46.0); HEMO FLAGS DIFF FINAL; LYMPH % 32.2 % (9.0-44.0); LYMPHOCYTE # 1.9 TH/MM3 (1.0-4.8); MEAN CELL VOLUME 86.9 FL (80.0-100.0); MEAN CORPUSCULAR HEMOGLOBIN 29.2 PG (27.0-34.0); MEAN CORPUSCULAR HGB CONC 33.6 % (32.0-36.0); MONO % 10.6 % (0.0-8.0); NEUT % 54.4 % (16.0-70.0); PLATELET COUNT 191 TH/MM3 (150-450); RED BLOOD COUNT 4.93 MIL/MM3 (4.00-5.30); RED CELL DISTRIBUTION WIDTH 13.4 % (11.6-17.2); WHITE BLOOD COUNT 5.8 TH/MM3 (4.0-11.0)
[2017-04-23 04:56] LABS: ALT (GPT) 21 U/L (10-53); ANION GAP 7 MEQ/L (5-15); AST (GOT) 19 U/L (15-37); BICARBONATE 25.1 MEQ/L (21.0-32.0); BLOOD UREA NITROGEN 13 MG/DL (7-18); CHLORIDE 108 MEQ/L (98-107); GLOMERULAR FILTRATION RATE 80 ML/MIN (>89); POTASSIUM 3.6 MEQ/L (3.5-5.1); SODIUM (NA) 140 MEQ/L (136-145)
[2017-04-23 04:58] LABS: ALKALINE PHOSPHATASE 89 U/L (45-117); TOTAL BILIRUBIN ADULT 0.8 MG/DL (0.2-1.0)
--- NOTE | 2017-04-23 06:20 | RADRPT ---
EXAM DATE/TIME: 04/23/2017 06:00 [facility] COMPARISON: CT BRAIN W/O CONTRAST, April 22, 2017, 10:19 INDICATIONS : Follow up subdural hematoma. RADIATION DOSE: 5.35 CTDIvol (mGy) MEDICAL HISTORY : Hypertension. SURGICAL HISTORY : Hysterectomy. ENCOUNTER: Subsequent ACUITY: 3 days PAIN SCALE: Non-responsive LOCATION: cranial TECHNIQUE: Multiple contiguous axial images were obtained of the head. Using automated exposure control and adj ustment of the mA and/or kV according to patient size, radiation dose was kept as low as reasonably a chievable to obtain optimal diagnostic quality images. DICOM format image data is available electro nically for review and comparison. FINDINGS: Small perifalcine subdural blood of the left frontal lobe unchanged, measures approximately 6 mm in m aximal thickness. No new blood. No mass effect or midline shift. No evidence of an acute ischemic vikas nt. CONCLUSION: Small left frontal perifalcine subdural blood is unchanged. No new blood. No midline shift. Maynor Dick MD on April 23, 2017 at 6:17 Board Certified Radiologist. This report was verified electronically.
[2017-04-23] MEDS: LEVOTHYROXINE SODIUM 50 MCG TAB PO SCH (06:23)
[2017-04-23] MEDS: clonazePAM 1 MG TAB PO SCH ×2 (06:23→18:26)
[2017-04-23] MEDS: DOCUSATE SODIUM 50 MG/SENNA 8.6 MG TAB PO SCH ×2 (08:19→20:42)
[2017-04-23] MEDS: amLODIPine BESYLATE 5 MG TAB PO SCH (08:19)
[2017-04-23] MEDS: PRAVASTATIN SOD 10 MG TAB PO SCH (08:19)
[2017-04-23] MEDS: LISINOPRIL 20 MG TAB PO SCH (08:19)
[2017-04-23] MEDS: FAMOTIDINE 20 MG/2 ML VIAL IV PUSH SCH (08:19)
[2017-04-23] MEDS: SODIUM CHLORIDE 0.9% FLUSH 10 ML FLUSH IV FLUSH SCH ×2 (08:20→21:00)
--- NOTE | 2017-04-23 09:20 | HHI.CCPN ---
Subjective Remarks/Hospital Course 82 year old female with past medical history significant for hypertension, dyslipidemia, hypothyroidism, anxiety and depression. She was sent from her primary care doctor's office for a CT of the head due to a fall sustained 2 days ago. She slipped and fell and hit her face on a bedside table. Post fall she had a headache but hasn't resolved now. Stat CT of the head showed two left parafalcine subdural hemorrhages within the left parietal region measuring 2.3 x 0.6 cm and 0.[address] of the facial bones showed acute fractures involving the lateral wall of left orbit, anterior, medial and inferior hernández of the left maxillary sinus. I evaluated the patient in the ICU. Denies headache or any focal weakness. Had no seizures post fall. Patient is hypertensive. When necessary hydralazine ordered and home antihypertensives had been started. Neurosurgeon has seen the patient and as well as oral and maxillofacial surgeon. Follow-up CT of the head planned for a.m. SUBJ 04/23: No acute events overnight. CT of the head remained stable. No focal deficits. D/w Neurosurgery Objective Vital Signs Date Time Temp Pulse Resp B/P (MAP) Pulse Ox O2 Delivery O2 Flow Rate FiO2 04/23/17 06:00 56 04/23/17 04:00 98.0 12 114/73 (87) 97 04/22/17 20:00 Room Air Intake and Output 04/23/17 04/23/17 04/24/17 08:00 16:00 00:00 Intake Total 120 ml Output Total 600 ml Balance -480 ml Result Diagram: 04/23/17 0420 04/23/[address] of the head showed two left parafalcine subdural hemorrhages left parietal region measuring 2.3 x 0.6 cm and 0.[address] of the facial bones showed acute fractures of the lateral wall of left orbit , anterior, medial and inferior hernández of the left maxillary sinus. Objective Remarks GENERAL: Elderly female not in any acute distress SKIN: Warm and dry HEAD: Ecchymoses in left maxillary region. EYES: Pupils equal and round. No scleral icterus. ENT: No nasal bleeding or discharge. Airway patent NECK: Trachea midline. No JVD. CARDIOVASCULAR: Regular rate and rhythm. No murmur appreciated. RESPIRATORY: No accessory muscle use. Clear to auscultation. GASTROINTESTINAL: Abdomen soft, non-tender, nondistended. MUSCULOSKELETAL: Swelling of right thumb and wrist. Sensation intact. Left hand , mild erythema NEUROLOGICAL: Awake and alert. No obvious cranial nerve deficits. Motor grossly within normal limits. A/P Assessment and Plan NEURO: Status post fall Acute falcine subdural hemorrhage Left orbital and maxillary sinus fracture - Neurosurgery has already seen patient no surgical intervention needed at this time - CT of the head today stable - Keep sodium normal - OMFS consult appreciated, no surgical indication RESP: - Nasal cannula oxygen - Aggressive pulmonary toilet CV: Uncontrolled hypertension History of hypertension Dyslipidemia - Normal saline IV fluids 100 ml per hour-reduce to KVO - Hydralazine 20 mg IV every 6 hours when necessary for SBP more than 160. Target systolic blood pressure less than 160 - Continue home medications including lisinopril, metoprolol, amlodipine, continue statin GI: - Heart healthy diet - IV famotidine-change to PO : - Monitor renal function closely. Continue IV hydration ID: - No antibiotics at this time HEME: - Monitor CBC, CMP, coags ENDO: - Electrolyte replacement per protocol PROPH: - Bilateral lower extremity SCDs, SATNAM. Avoid chemical DVT prophylaxis LINES: - Utilize peripheral IVs, central line if needed Level 2 D/W Neurosurgery, transfer to med surg, hospitalist to assume care in Baldo Mcguire MD Apr 23, 2017 09:20
[2017-04-23] MEDS: ACETAMINOPHEN 325 MG TAB PO PRN (10:57)
--- NOTE | 2017-04-23 11:06 | HHI.NSPN ---
History Interval History 82y/o female who sustained a fall at home 2 days ago. Patient admitted for observation Reports doing well. Offers no complaints System Review Comments no change Exam Results Vital Signs Date Time Temp Pulse Resp B/P (MAP) Pulse Ox O2 Delivery O2 Flow Rate FiO2 04/23/17 10:00 80 04/23/17 08:00 98.3 17 124/68 (86) 99 04/23/17 07:00 Room Air Intake and Output 04/23/17 04/23/17 04/24/17 08:00 16:00 00:00 Intake Total 120 ml Output Total 600 ml Balance -480 ml Physical Examination Alert and awake, Follows commands, right handed, oriented x 3, CN: Hard of hearing Pupils equal and reactive Motor 5/5 Sensory intact to touch DTRs UE 1+ KJ 2+ ankle neg Silent babinski Mood much improved Lab, Micro, Other Results CT reviewed No change Medical Decision Making Impression and Plan Imp: Falcine hemorrhage. No surgery needed Rec: Transfer to floor Total Minutes: 15 Wes Otto MD Apr 23, 2017 11:06
[2017-04-23] MEDS: METOPROLOL SUCCINATE 50 MG EXTENDED RELEASE TAB PO SCH (20:42)
[2017-04-23] MEDS: TEMAZEPAM 15 MG CAP PO PRN (20:42)
[2017-04-24] MEDS: CHLORHEXIDINE GLUCONATE 2 % 1 PACK (2 CLOTHS) TOP SCH (03:48)
[2017-04-24] MEDS: LEVOTHYROXINE SODIUM 50 MCG TAB PO SCH (05:55)
[2017-04-24] MEDS: clonazePAM 1 MG TAB PO SCH ×2 (07:10→18:47)
[2017-04-24 08:09] VITALS: BP 188/78; PULSE 66; RESP 18; TEMP 97.6; O2SAT 96
[2017-04-24] MEDS: SODIUM CHLORIDE 0.9% FLUSH 10 ML FLUSH IV FLUSH SCH ×2 (08:29→22:00)
[2017-04-24] MEDS: PRAVASTATIN SOD 10 MG TAB PO SCH (08:30)
[2017-04-24] MEDS: DOCUSATE SODIUM 50 MG/SENNA 8.6 MG TAB PO SCH ×2 (08:30→22:00)
[2017-04-24] MEDS: LISINOPRIL 20 MG TAB PO SCH (08:30)
[2017-04-24] MEDS: amLODIPine BESYLATE 5 MG TAB PO SCH (08:30)
[2017-04-24] MEDS ORDERED: ENALAPRILAT 1.25 MG/ML VIAL IV PUSH PRN (11:45)
[2017-04-24] MEDS ORDERED: cloNIDine HCL 0.1 MG TAB PO PRN (11:45)
[2017-04-24 12:54] VITALS: BP 130/61; PULSE 90; RESP 19; TEMP 98.6; O2SAT 96
--- NOTE | 2017-04-24 14:43 | HHI.PR ---
Subjective Remarks No new complaints today Pt tolerating diet ok Objective Vitals Vital Signs Date Time Temp Pulse Resp B/P (MAP) Pulse Ox O2 Delivery O2 Flow Rate FiO2 04/24/17 12:54 98.6 90 19 130/61 (84) 96 04/24/17 08:36 Room Air 04/24/17 08:09 97.6 66 18 188/78 (114) 96 04/23/17 21:30 97.6 67 18 126/80 (95) 98 Result Diagram: 04/23/17 0420 04/23/17 0420 Other Results Laboratory Tests Test 04/22/17 16:00 04/23/17 04:20 Nasal Screen MRSA (PCR) MRSA DETECTED White Blood Count 5.8 TH/MM3 Red Blood Count 4.93 MIL/MM3 Hemoglobin 14.4 GM/DL Hematocrit 42.9 % Mean Corpuscular Volume 86.9 FL Mean Corpuscular Hemoglobin 29.2 PG Mean Corpuscular Hemoglobin Concent 33.6 % Red Cell Distribution Width 13.4 % Platelet Count 191 TH/MM3 Mean Platelet Volume 9.1 FL Neutrophils (%) (Auto) 54.4 % Lymphocytes (%) (Auto) 32.2 % Monocytes (%) (Auto) 10.6 % Eosinophils (%) (Auto) 2.2 % Basophils (%) (Auto) 0.6 % Neutrophils # (Auto) 3.1 TH/MM3 Lymphocytes # (Auto) 1.9 TH/MM3 Monocytes # (Auto) 0.6 TH/MM3 Eosinophils # (Auto) 0.1 TH/MM3 Basophils # (Auto) 0.0 TH/MM3 CBC Comment DIFF FINAL Differential Comment Blood Urea Nitrogen 13 MG/DL Creatinine 0.70 MG/DL Random Glucose 96 MG/DL Total Protein 6.9 GM/DL Albumin 3.7 GM/DL Calcium Level 9.0 MG/DL Alkaline Phosphatase 89 U/L Aspartate Amino Transf (AST/SGOT) 19 U/L Alanine Aminotransferase (ALT/SGPT) 21 U/L Total Bilirubin 0.8 MG/DL Sodium Level 140 MEQ/L Potassium Level 3.6 MEQ/L Chloride Level 108 MEQ/L Carbon Dioxide Level 25.1 MEQ/L Anion Gap 7 MEQ/L Estimat Glomerular Filtration Rate 80 ML/MIN Imaging Last Impressions Head CT 04/23/17 0600 Signed Impressions: Service Date/Time: Sunday, April 23, 2017 06:00 - CONCLUSION: Small left frontal perifalcine subdural blood is unchanged. No new blood. No midline shift. Maynor Dick MD Wrist X-Ray 04/22/17 0000 Signed Impressions: Service Date/Time: Saturday, April 22, 2017 11:16 - CONCLUSION: 1. No acute fracture or dislocation. 2. Possible old ununited ulnar styloid fracture. 3. Diffuse osteoporosis. Sedrick Fernandez MD Maxillofacial CT 04/22/17 0000 Signed Impressions: Service Date/Time: Saturday, April 22, 2017 10:23 - CONCLUSION: 1. Acute fractures involving the lateral wall of left orbit, as well as the anterior, medial and inferior hernández of the left maxillary sinus. 2. Minimal mucosal thickening is noted involving the maxillary sinus Sedrick Fernandez MD Hand X-Ray 04/22/17 0000 Signed Impressions: Service Date/Time: Saturday, April 22, 2017 11:13 - CONCLUSION: 1. No acute fracture or dislocation. 2. Diffuse osteoporosis. 3. No significant joint space narrowing noted. Sedrick Fernandez MD Cervical Spine CT 04/22/17 0000 Signed Impressions: Service Date/Time: Saturday, April 22, 2017 10:23 - CONCLUSION: 1. No acute fracture or prevertebral soft tissue swelling. 2. Moderate spinal stenosis at C5-6 and mild spinal stenosis at C4-5 and C6-7. 3. Moderate bilateral foraminal narrowing at C3-4, C4-5, C5-6 and C6-7 and mild bilateral foraminal narrowing at C7-T1. Sedrick Fernandez MD Objective Remarks General: NAD, AAOx3 Chest: CTA bilaterally Cardiac: Regular Abd: +BS, soft ND/NT Ext: No edema A/P Problem List: (1) Acute subdural hemorrhage Status: Acute Plan: - Pt is an 82 y/o WF with hypertension, dyslipidemia, hypothyroidism, anxiety and depression. Pt was sent from her primary care doctor's office on 04/[address] of the head to evaluate after a fall she sustained 2 days prior to admission. She had slipped and fell and hit her face on a bedside table. - CT of the head (04/22) showed two left parafalcine subdural hemorrhages within the left parietal region measuring 2.3 x 0.6 cm and 0.9 x 0.4 cm. - CT of the facial bones showed acute fractures involving the lateral wall of left orbit, anterior, medial and inferior hernández of the left maxillary sinus. - Pt was admitted to the ICU with Neurosurgical consultation as well as oral and maxillofacial surgeon. - Follow-up CT of the head (04/23) with small left frontal parafalcine subdural blood is unchanged. No new blood. No midline shift. - Pt ambulated with PT today and was recommended for HHC/PT, but she only ambulated about 10' x 2 - Will need to await Neurosurgical evaluation today to determine when pt is able to be discharged. - Pt would probably benefit more from SNF as she lives at home by herself. - The case was discussed between Dr. Schneider and the pts son, Urbano. - Supportive care - DVT prophylaxis with SCDs (2) Facial fracture due to fall ICD Codes: S02.92XA - Unspecified fracture of facial bones, initial encounter for closed fracture; W19.XXXA - Unspecified fall, initial encounter Status: Acute Plan: - Pt was evaluated by OMFS during this admission for left maxillary sinus fracture which was felt to be stable with no need for surgical intervention. (3) Hypothyroidism ICD Codes: E03.9 - Hypothyroidism, unspecified Status: Chronic Plan: - Cont. home meds (4) Hyperlipidemia ICD Codes: E78.5 - Hyperlipidemia, unspecified Status: Chronic Plan: - Cont. home meds (5) Essential tremor ICD Codes: G25.0 - Essential tremor Status: Chronic Plan: - Pt follows with Dr. Kaye as an outpt Problem Qualifiers (1) Facial fracture due to fall: Qualified Codes: S02.92XA - Unspecified fracture of facial bones, initial encounter for closed fracture; W19.XXXA - Unspecified fall, initial encounter Tea Keating Apr 24, 2017 14:43
[2017-04-24] MEDS: ACETAMINOPHEN 325 MG TAB PO PRN (16:02)
--- NOTE | 2017-04-24 16:18 | HHI.NSPN ---
(Bebeto Baird) History Chief Complaint: Slight headache and aching to the back of the head. (Bebeto Baird) Interval History 04/22: This is an 82-year-old female patient with multiple medical problems. She was seen today at her primary care physician's office and sent to [facility] for a CT scan. The patient reports that approximately two days ago she got up in the middle of the night and upon return to her bed, she slipped and fell hitting her face on the bedside table. She denies any loss of consciousness. Because of a persistent mild headache, she was seen by her primary care physician today and sent as stated above for a CT scan. Because of abnormal CT scan, neurosurgery consultation has been placed. Presently the patient complains of a mild headache, which is intermittent. She denies any other problems. 04/23: 82y/o female who sustained a fall at home 2 days ago. Patient admitted for observation Reports doing well. Offers no complaints 04/24: The patient is doing well when seen. She states she does have some pain to the back of the head as well as a slight headache. She also says she does have some pain to the left arm. She denies any dizziness. (Bebeto Baird) System Review Comments HEENT: Some pain to the back of the head. MUSCULOSKELETAL: Left arm hurts. NEUROLOGICAL: Slight headache. Some numbness to the left maxilla region. Essential tremors. (Bebeto Baird) Exam Results 04/22/17 04/22/17 04/23/17 04/23/17 04/24/17 04/24/17 06:00 18:00 06:00 18:00 06:00 18:00 Intake Total 370 ml 120 ml 1300 ml Output Total 400 ml 600 ml Balance -30 ml -480 ml 1300 ml Intake Oral 120 ml 120 ml 950 ml IV Total 250 ml Tube Feeding 350 ml Output Urine Total 400 ml 600 ml # Voids 3 # Bowel Movements 0 0 0 Vital Signs Date Time Temp Pulse Resp B/P (MAP) Pulse Ox O2 Delivery O2 Flow Rate FiO2 12/18/17 12:54 98.6 90 19 130/61 (84) 96 04/24/17 08:36 Room Air 04/24/17 08:09 97.6 66 18 188/78 (114) 96 04/23/17 21:30 97.6 67 18 126/80 (95) 98 04/23/17 12:12 65 04/23/17 10:00 80 04/23/17 08:00 98.3 67 17 124/68 (86) 99 04/23/17 08:00 67 04/23/17 07:00 99 Room Air 04/23/17 06:00 56 04/23/17 04:00 67 04/23/17 04:00 98.0 67 12 114/73 (87) 97 04/23/17 02:00 61 04/23/17 00:00 70 04/23/17 00:00 98.2 70 20 102/50 (67) 93 04/22/17 22:00 86 04/22/17 20:00 98.4 86 16 125/59 (81) 98 04/22/17 20:00 Room Air 04/22/17 20:00 87 04/22/17 18:00 85 04/22/17 16:00 98.2 64 15 180/70 (106) 95 04/22/17 16:00 68 04/22/17 15:06 04/22/17 15:00 95 Room Air 04/22/17 15:00 97.5 63 20 181/77 (111) 100 04/22/17 13:00 64 14 163/71 (101) 96 Room Air 04/22/17 11:00 71 18 153/70 (97) 96 Room Air 04/22/17 09:54 65 15 200/74 (116) 99 Room Air 04/22/17 09:26 98.2 67 18 186/82 (116) 99 (Bebeto Baird) Physical Examination GENERAL: The patient is awake & alert in bed, her affect is essentially normal, no apparent distress. HEENT: Mild suborbital swelling & ecchymosis on the left which is TTP and w/ decreased sensation. PERRLA 3 mm brisk, EOMI. No otorrhea or rhinorrhea. MMM, pink & tongue protrudes to midline. MUSCULOSKELETAL: KHAN w/o difficulty, left arm mildly TTP, no evident clubbing or deformity. Mild tremors noted to both upper extremities. NEUROLOGICAL: AAOx3. Speech essentially clear & appropriate. Follows simple commands w/o difficulty. CN VIII deficit chronically (MATCH-E-[employer]-NASH-SHE-WISH BAND) & left CN VII deficit w/decreased sensation to left maxilla region, o/w CN II-XII appear grossly intact. Sensation intact to light touch to the extremities. Motor strength is 5/5 to all major flexion & extension muscle groups. (Bebeto Baird) Lab, Micro, Other Results Recent Impressions Head CT 04/23/17 0600 Signed Impressions: Service Date/Time: Sunday, April 23, 2017 06:00 - CONCLUSION: Small left frontal perifalcine subdural blood is unchanged. No new blood. No midline shift. Maynor Dick MD Wrist X-Ray 04/22/17 0000 Signed Impressions: Service Date/Time: Saturday, April 22, 2017 11:16 - CONCLUSION: 1. No acute fracture or dislocation. 2. Possible old ununited ulnar styloid fracture. 3. Diffuse osteoporosis. Sedrick Fernandez MD Maxillofacial CT 04/22/17 0000 Signed Impressions: Service Date/Time: Saturday, April 22, 2017 10:23 - CONCLUSION: 1. Acute fractures involving the lateral wall of left orbit, as well as the anterior, medial and inferior hernández of the left maxillary sinus. 2. Minimal mucosal thickening is noted involving the maxillary sinus Sedrick Fernandez MD Head CT 04/22/17 0000 Signed Impressions: Service Date/Time: Saturday, April 22, 2017 10:19 - CONCLUSION: Two left parafalcine high density collections within the left parietal region measuring 2.3 x 0.6 cm and 0.9 x 0.4 cm suggestive of probable acute subdural hematomas. Sedrick Fernandez MD Hand X-Ray 04/22/17 0000 Signed Impressions: Service Date/Time: Saturday, April 22, 2017 11:13 - CONCLUSION: 1. No acute fracture or dislocation. 2. Diffuse osteoporosis. 3. No significant joint space narrowing noted. Sedrick Fernandez MD Hand X-Ray 04/22/17 0000 Signed Impressions: Service Date/Time: Saturday, April 22, 2017 11:17 - CONCLUSION: 1. No acute fracture or dislocation. 2. Mild osteoarthritis as described above. 3. Probable old ununited ulnar styloid process fracture. 4. Diffuse osteoporosis. Sedrick Fernandez MD Cervical Spine CT 04/22/17 0000 Signed Impressions: Service Date/Time: Saturday, April 22, 2017 10:23 - CONCLUSION: 1. No acute fracture or prevertebral soft tissue swelling. 2. Moderate spinal stenosis at C5-6 and mild spinal stenosis at C4-5 and C6-7. 3. Moderate bilateral foraminal narrowing at C3-4, C4-5, C5-6 and C6-7 and mild bilateral foraminal narrowing at C7-T1. Sedrick Fernandez MD Laboratory Tests Test 04/22/17 12:00 04/22/17 16:00 04/23/17 04:20 White Blood Count 5.6 TH/MM3 5.8 TH/MM3 Red Blood Count 4.63 MIL/MM3 4.93 MIL/MM3 Hemoglobin 13.6 GM/DL 14.4 GM/DL Hematocrit 40.7 % 42.9 % Mean Corpuscular Volume 87.8 FL 86.9 FL Mean Corpuscular Hemoglobin 29.4 PG 29.2 PG Mean Corpuscular Hemoglobin Concent 33.5 % 33.6 % Red Cell Distribution Width 13.0 % 13.4 % Platelet Count 179 TH/MM3 191 TH/MM3 Mean Platelet Volume 9.1 FL 9.1 FL Neutrophils (%) (Auto) 54.4 % 54.4 % Lymphocytes (%) (Auto) 34.2 % 32.2 % Monocytes (%) (Auto) 8.0 % 10.6 % Eosinophils (%) (Auto) 3.0 % 2.2 % Basophils (%) (Auto) 0.4 % 0.6 % Neutrophils # (Auto) 3.0 TH/MM3 3.1 TH/MM3 Lymphocytes # (Auto) 1.9 TH/MM3 1.9 TH/MM3 Monocytes # (Auto) 0.4 TH/MM3 0.6 TH/MM3 Eosinophils # (Auto) 0.2 TH/MM3 0.1 TH/MM3 Basophils # (Auto) 0.0 TH/MM3 0.0 TH/MM3 CBC Comment DIFF FINAL DIFF FINAL Differential Comment Prothrombin Time 10.7 SEC Prothromb Time International Ratio 1.1 RATIO Activated Partial Thromboplast Time 26.3 SEC Blood Urea Nitrogen 10 MG/DL 13 MG/DL Creatinine 0.61 MG/DL 0.70 MG/DL Random Glucose 90 MG/DL 96 MG/DL Calcium Level 8.9 MG/DL 9.0 MG/DL Sodium Level 140 MEQ/L 140 MEQ/L Potassium Level 4.1 MEQ/L 3.6 MEQ/L Chloride Level 106 MEQ/L 108 MEQ/L Carbon Dioxide Level 28.3 MEQ/L 25.1 MEQ/L Anion Gap 6 MEQ/L 7 MEQ/L Estimat Glomerular Filtration Rate 94 ML/MIN 80 ML/MIN Nasal Screen MRSA (PCR) MRSA DETECTED Total Protein 6.9 GM/DL Albumin 3.7 GM/DL Alkaline Phosphatase 89 U/L Aspartate Amino Transf (AST/SGOT) 19 U/L Alanine Aminotransferase (ALT/SGPT) 21 U/L Total Bilirubin 0.8 MG/DL (Bebeto Baird) Medical Decision Making Impression and Plan Impression: 1.) Falcine haemorrhage The patient is doing well, she does have a slight headache, aching to the posterior head and decreased sensation to the left maxilla region. Essential tremors. Plan: Primary management per Nonsurgical. Neuro checks. Stat CT brain for any decline in neuro status. Mobilise patient w/assistance. PT/OT eval & tx. Patient would benefit from short stay at SNF for therapy. (Bebeto Baird) Attending Statement The exam, history, and the medical decision-making described in the above note were completed with the assistance of the mid-level provider. I reviewed and agree with the findings presented. I attest that I had a [id number] encounter with the patient on the same day, and personally performed and documented my assessment and findings in the medical record. On my examination 04/24/2017, the patient is awake and alert. She has some speech difficulty which she states is her baseline related to essential tremor. She has some mild left infraorbital ecchymosis. Otherwise a nonfocal cranial nerve and extremity sensory motor examination. Her CT scan images of been reviewed. Findings were discussed with the patient. She is stable for discharge from neurosurgical standpoint. Disposition pending-home health care versus halfway. (William Alfaro MD) Bebeto Baird Apr 24, 2017 16:18 William Alfaro MD Apr 24, 2017 20:39
[2017-04-24 16:40] VITALS: BP 147/66; PULSE 70; RESP 19; TEMP 98.6; O2SAT 96
[2017-04-24 20:00] VITALS: PULSE 67; PULSE 79
[2017-04-24 20:52] VITALS: BP 124/58; PULSE 74; RESP 18; TEMP 97.6; O2SAT 94
[2017-04-24] MEDS: METOPROLOL SUCCINATE 50 MG EXTENDED RELEASE TAB PO SCH (22:00)
[2017-04-24] MEDS: SODIUM CHLOR 0.9% 1000 ML INJ 1,000 ML IV SCH (22:21)
[2017-04-25] VITALS (7 sets, daily range): BP systolic 105–151; BP diastolic 56–70; PULSE 60–67; RESP 18; TEMP 97.2–98.4; O2SAT 94–97
[2017-04-25] MEDS: CHLORHEXIDINE GLUCONATE 2 % 1 PACK (2 CLOTHS) TOP SCH (04:00)
[2017-04-25] MEDS: LEVOTHYROXINE SODIUM 50 MCG TAB PO SCH (04:23)
[2017-04-25] MEDS: ACETAMINOPHEN 325 MG TAB PO PRN (04:24)
[2017-04-25] MEDS: clonazePAM 1 MG TAB PO SCH (06:43)
[2017-04-25] MEDS: DOCUSATE SODIUM 50 MG/SENNA 8.6 MG TAB PO SCH (09:00)
[2017-04-25] MEDS: SODIUM CHLORIDE 0.9% FLUSH 10 ML FLUSH IV FLUSH SCH (09:00)
[2017-04-25] MEDS: amLODIPine BESYLATE 5 MG TAB PO SCH (09:27)
[2017-04-25] MEDS: PRAVASTATIN SOD 10 MG TAB PO SCH (09:27)
[2017-04-25] MEDS: LISINOPRIL 20 MG TAB PO SCH (09:28)
[2017-04-25] MEDS: SODIUM CHLOR 0.9% 1000 ML INJ 1,000 ML IV SCH (09:29)
--- NOTE | 2017-04-25 14:51 | HHI.DCPOC ---
Discharge Care Plan Diagnosis: (1) Facial fracture due to fall (2) Subdural bleeding (3) Hypothyroidism (4) Hyperlipidemia (5) Essential tremor (6) HTN (hypertension) Goals to Promote Your Health * To prevent worsening of your condition and complications * To maintain your health at the optimal level Directions to Meet Your Goals Take your medications as prescribed Follow your dietary instruction Follow activity as directed Keep your appointments as scheduled Take your immunizations and boosters as scheduled If your symptoms worsen call your PCP, if no PCP go to Urgent Care Center or Emergency Room Smoking is Dangerous to Your Health. Avoid second hand smoke Call the 24-hour hour crisis hotline for domestic abuse at Tea Keating Apr 25, 2017 14:51
[2017-04-25] MEDS ORDERED: CLON1TAB PO (15:02)
--- NOTE | 2017-04-25 15:05 | HHI.DS ---
Discharge Summary Admission Date Apr 22, 2017 at 13:25 Discharge Date: Apr 25, 2017 Admitting Diagnosis Subdural hematoma (1) Nontraumatic acute subdural hemorrhage Diagnosis: Principal ICD Codes: I62.01 - Nontraumatic acute subdural hemorrhage Status: Acute (2) Facial fracture due to fall Diagnosis: Secondary ICD Codes: S02.92XA - Unspecified fracture of facial bones, initial encounter for closed fracture; W19.XXXA - Unspecified fall, initial encounter Status: Acute (3) Hypothyroidism Diagnosis: Secondary ICD Codes: E03.9 - Hypothyroidism, unspecified Status: Chronic (4) Hyperlipidemia Diagnosis: Secondary ICD Codes: E78.5 - Hyperlipidemia, unspecified Status: Chronic (5) Essential tremor Diagnosis: Secondary ICD Codes: G25.0 - Essential tremor Status: Chronic Consultants Dr. William Alfaro - Neurosurgery Dr. Brien Potts - Oral Maxillofacial Surgery Brief History HPI from the [employer] H&P: "82 year old female with past medical history significant for hypertension, dyslipidemia, hypothyroidism, anxiety and depression. She was sent from her primary care doctor's office for a CT of the head due to a fall sustained 2 days ago. She slipped and fell and hit her face on a bedside table. Post fall she had a headache but hasn't resolved now. Stat CT of the head showed two left parafalcine subdural hemorrhages within the left parietal region measuring 2.3 x 0.6 cm and 0.[address] of the facial bones showed acute fractures involving the lateral wall of left orbit, anterior, medial and inferior hernández of the left maxillary sinus. I evaluated the patient in the ICU. Denies headache or any focal weakness. Had no seizures post fall. Patient is hypertensive. When necessary hydralazine ordered and home antihypertensives had been started. Neurosurgeon has seen the patient and as well as oral and maxillofacial surgeon. Follow-up CT of the head planned for a.m." CBC/BMP: 04/23/1741904/23/17 042 Significant Findings Laboratory Tests Test 04/22/17 16:00 04/23/17 04:20 Monocytes (%) (Auto) 10.6 % (0.0-8.0) Chloride Level 108 MEQ/L (98-107) Estimat Glomerular Filtration Rate 80 ML/MIN (>89) Imaging Last Impressions Head CT 04/23/17 0600 Signed Impressions: Service Date/Time: Sunday, April 23, 2017 06:00 - CONCLUSION: Small left frontal perifalcine subdural blood is unchanged. No new blood. No midline shift. Maynor Dick MD Wrist X-Ray 04/22/17 0000 Signed Impressions: Service Date/Time: Saturday, April 22, 2017 11:16 - CONCLUSION: 1. No acute fracture or dislocation. 2. Possible old ununited ulnar styloid fracture. 3. Diffuse osteoporosis. Sedrick Fernandez MD Maxillofacial CT 04/22/17 0000 Signed Impressions: Service Date/Time: Saturday, April 22, 2017 10:23 - CONCLUSION: 1. Acute fractures involving the lateral wall of left orbit, as well as the anterior, medial and inferior hernández of the left maxillary sinus. 2. Minimal mucosal thickening is noted involving the maxillary sinus Sedrick Fernandez MD Hand X-Ray 04/22/17 0000 Signed Impressions: Service Date/Time: Saturday, April 22, 2017 11:13 - CONCLUSION: 1. No acute fracture or dislocation. 2. Diffuse osteoporosis. 3. No significant joint space narrowing noted. Sedrick Fernandez MD Cervical Spine CT 04/22/17 0000 Signed Impressions: Service Date/Time: Saturday, April 22, 2017 10:23 - CONCLUSION: 1. No acute fracture or prevertebral soft tissue swelling. 2. Moderate spinal stenosis at C5-6 and mild spinal stenosis at C4-5 and C6-7. 3. Moderate bilateral foraminal narrowing at C3-4, C4-5, C5-6 and C6-7 and mild bilateral foraminal narrowing at C7-T1. Sedrick Fernandez MD PE at Discharge General: NAD, AAOx3 Chest: CTA bilaterally Cardiac: Regular Abd: +BS, soft ND/NT Ext: No edema Hospital Course Acute subdural hemorrhage Pt is an 82 y/o WF with hypertension, dyslipidemia, hypothyroidism, anxiety and depression. Pt was sent from her primary care doctor's office on 04/[address] of the head to evaluate after a fall she sustained 2 days prior to admission. She had slipped and fell and hit her face on a bedside table. CT of the head ( 04/22) showed two left parafalcine subdural hemorrhages within the left parietal region measuring 2.3 x 0.6 cm and 0.[address] of the facial bones showed acute fractures involving the lateral wall of left orbit, anterior, medial and inferior hernández of the left maxillary sinus. Pt was admitted to the ICU with Neurosurgical consultation as well as oral and maxillofacial surgeon. Follow-up CT of the head (04/23) with small left frontal parafalcine subdural blood is unchanged. No new blood. No midline shift. Pt ambulated with PT on and was recommended for HHC/PT, but she only ambulated about 10' x 2 and she lives alone. Neurosurgery re-evaluated the pt on 04/24 and they cleared the pt for discharge and also felt that she would benefit from SNF as she lives at home by herself. The case was discussed between Dr. Schneider and the pts son, Urbano, and he is agreeable to SNF placement. Pt is planned to go to [facility] at discharge. Facial fracture due to fall Pt was evaluated by OMFS during this admission for left maxillary sinus fracture which was felt to be stable with no need for surgical intervention. Hypothyroidism Cont. home meds Hyperlipidemia Cont. home meds Essential tremor Pt felt that her speech was worse more recently which she attributes to her essential tremor. She follows with Dr. Kaye as an outpt and plans to followup with him She will followup with her PCP, Dr. White, 1 week after discharge from SNF. Dr. White will likely follow the pt at rehab as well. Pt will need to followup with Dr. Alfaro in 2 weeks. Pt Condition on Discharge: Stable Discharge Disposition: Discharge to SNF Discharge Instructions DIET: Follow Instructions for: Heart Healthy Diet Activities you can perform: Regular-No Restrictions Follow up Referrals: Neurology - 2 Weeks with Min Laguna M.d. Neurosurgery - 2 Weeks with William Alfaro MD PCP Follow-up - [address] Da White Changed Medications: Clonazepam (Clonazepam) 1 Mg Tab 1 MG PO BID PRN for ANXIETY, #60 TAB 0 Refills (Medication details modified) Continued Medications: Amlodipine (Amlodipine) 5 Mg Tab 5 MG PO DAILY for Blood Pressure Management, #30 TAB [address] (Aspirin EC) 81 Mg Tabdr 81 MG PO DAILY, TAB 0 Refills Calcium Carbonate-Cholecalciferol (Calcium 500 +D) 500-400 Mg-Unit Tab 1 TAB PO DAILY for Calcium Supplement, TAB 0 Refills Levothyroxine (Levoxyl) 50 Mcg Tab 50 MCG PO DAILY for Thyroid, #30 TAB 0 Refills Lisinopril (Lisinopril) 20 Mg Tab 20 MG PO DAILY, #30 TAB 0 Refills Lovastatin (Lovastatin) 10 Mg Tab 10 MG PO DAILY for Cholesterol Management, #30 TAB 0 Refills Metoprolol Succinate ER 24 HR (Toprol XL) 100 Mg Tab 100 MG PO HS, #30 TAB 0 Refills Metronidazole Topical 0.75% (Ros[place] Topical 0.75%) 0.75% Gel 1 APPLIC TOPICAL BID for Infection, #1 TUBE 0 Refills Omeprazole (Omeprazole) 20 Mg Tab 20 MG PO DAILY, #30 TAB 0 Refills Discontinued Medications: Ascorbic Acid (Ascorbic Acid) 500 Mg Tab 500 MG PO DAILY, TAB Cod Liver Oil (Cod Liver Oil) 5,000-500 Unit/5Ml Oil 5 ML PO DAILY Temazepam (Temazepam) 15 Mg Cap 15 MG PO HS PRN for INSOMNIA, #30 CAP 0 Refills Tea Keating Apr 25, 2017 15:04
== END 2017-04-25 17:04 | DRG 87 ==
LOC: NEPE 09:22 → NEDA 13:25 → N03A 14:53 → N05A 04-23 10:46
PROVIDERS: ADMIT Internal Medicine; ATTEND Internal Medicine
DX: S06.5X0A Traumatic subdural hemorrhage without loss of consciousness, initial encounter (principal); I10 Essential (primary) hypertension; F32.9 Major depressive disorder, single episode, unspecified; E03.9 Hypothyroidism, unspecified; S02.40DA Maxillary fracture, left side, initial encounter for closed fracture; S02.19XA Other fracture of base of skull, initial encounter for closed fracture; K21.9 Gastro-esophageal reflux disease without esophagitis; E78.5 Hyperlipidemia, unspecified; F41.9 Anxiety disorder, unspecified; W01.190A Fall on same level from slipping, tripping and stumbling with subsequent striking against furniture, initial encounter; G25.0 Essential tremor; H91.90 Unspecified hearing loss, unspecified ear; M19.90 Unspecified osteoarthritis, unspecified site
CPT/HCPCS: 70450; 70486; 72125; 73100; 73120; 80048; 80053; 85025; 85610; 85730; 86850; 86900; 86901; 87641; J0360; J7030

== ENCOUNTER 2017-08-19 19:51 | Emergency (ER) | payer MEDICARE ==
[~2017-08-19 19:51] MED LIST changes: -ASCO500T PO; +METR0.7533 TOPICAL; -TEMA15CA PO
[2017-08-19 20:07] VITALS: BP 213/107; PULSE 71; RESP 18; TEMP 97.8; O2SAT 97
[2017-08-19] MEDS ORDERED: CLON1TAB PO (20:27)
--- NOTE | 2017-08-19 20:27 | PD ---
HPI Chief Complaint: Medication Refill Request Time Seen by Provider: 20:17 Travel History International Travel<30 days: No Contact w/Intl Traveler<30days: No Traveled to known affect area: No History of Present Illness HPI This is an 82-year-old female history of anxiety disorder currently on Klonopin 1 mg twice daily here requesting a refill. Patient has her prescription bottle with her which has 5 remaining refills. she gets her prescriptions filled at [facility] pharmacy which is closed on the weekends. She reports she took her last dose of Klonopin today before realizing she did not refill the medication. She was told by her physician to not abruptly come off this medication which is why she presents to the ER. She has no medical complaints. Severity is mild. PFSH Past Medical History Arthritis: Yes Autoimmune Disease: No Blood Disorders: No Anxiety: Yes Depression: Yes Heart Rhythm Problems: Yes (TACHYCARDIA) Cancer: No Cardiovascular Problems: Yes (Tachycardia) High Cholesterol: Yes Chemotherapy: No Chest Pain: No Congestive Heart Failure: No Diabetes: No Diminished Hearing: Yes (CONFEDERATED SALISH) Endocrine: Yes Gastrointestinal Disorders: Yes (GERD, CONSTIPATION/ DIARRHEA) GERD: Yes Genitourinary: No Hepatitis: No Hiatal Hernia: No Hypertension: Yes Immune Disorder: No Musculoskeletal: Yes Neurologic: No Psychiatric: Yes Reproductive: No Respiratory: No Immunizations Current: Yes Myocardial Infarction: No Radiation Therapy: No Sickle Cell Disease: No Thyroid Disease: Yes Menopausal: Yes Past Surgical History Abdominal Surgery: Yes (Appendectomy) AICD: No Appendectomy: Yes Cardiac Surgery: No Ear Surgery: No Endocrine Surgery: No Eye Surgery: Yes (RIGHT PHACO CATARACT) Genitourinary Surgery: No Gynecologic Surgery: Yes (Hysterectomy, Left breast Biopsy) Hysterectomy: Yes Joint Replacement: No Neurologic Surgery: No Oral Surgery: Yes (Tonsilectomy) Pacemaker: No Thoracic Surgery: No Tonsillectomy: Yes Other Surgery: Yes Social History Alcohol Use: No Tobacco Use: No Substance Use: No Allergies-Medications (Allergen,Severity, Reaction): Coded Allergies: codeine (Unverified Allergy, Severe, Nausea/Vomiting, 08/19/17) meperidine (Unverified Allergy, Severe, Nausea/Vomiting, 08/19/17) metoprolol (Unverified Allergy, Severe, Arrhythmias, 08/19/17) penicillin G (Unverified Allergy, Severe, pt denies allergy, 08/19/17) risedronate sodium (Unverified Allergy, Mild, 08/19/17) PT IS UNCERTAIN IF SHE IS ALLERGIC TO THIS MEDICATION Reported Meds & Prescriptions Reported Meds & Active Scripts Active Clonazepam 1 Mg Tab 1 Mg PO BID PRN Reported Rosadan Topical 0.75% (Metronidazole Topical 0.75%) 0.75% Gel 1 Applic TOPICAL BID Lovastatin 10 Mg Tab 10 Mg PO DAILY Toprol XL (Metoprolol Succinate) 100 Mg Tab 100 Mg PO HS Amlodipine (Amlodipine Besylate) 5 Mg Tab 5 Mg PO DAILY Aspirin EC (Aspirin) 81 Mg Tabdr 81 Mg PO DAILY Calcium 500 +D (Calcium Carbonate-Cholecalciferol) 500-400 Mg-Unit Tab 1 Tab PO DAILY Levoxyl (Levothyroxine Sodium) 50 Mcg Tab 50 Mcg PO DAILY Lisinopril 20 Mg Tab 20 Mg PO DAILY Omeprazole 20 Mg Tab 20 Mg PO DAILY Review of Systems Except as stated in HPI: all other systems reviewed are Neg General / Constitutional: No: Fever Eyes: No: Visual changes HENT: No: Headaches Cardiovascular: No: Chest Pain or Discomfort Respiratory: No: Shortness of Breath Gastrointestinal: No: Abdominal Pain Genitourinary: No: Dysuria Physical Exam Narrative GENERAL: Alert, well-appearing 82-year-old female. No distress. SKIN: Warm and dry. HEAD: Normocephalic. EYES: No scleral icterus. No injection or drainage. NECK: Supple CARDIOVASCULAR: Regular rate and rhythm without murmurs, gallops, or rubs. RESPIRATORY: Breath sounds equal bilaterally. No accessory muscle use. GASTROINTESTINAL: Abdomen soft, non-tender, nondistended. MUSCULOSKELETAL: No cyanosis, or edema. BACK: Nontender without obvious deformity. Data Data Last Documented VS Vital Signs Date Time Temp Pulse Resp B/P (MAP) Pulse Ox O2 Delivery O2 Flow Rate FiO2 08/19/17 20:07 97.8 71 18 213/107 (142) 97 MDM Medical Decision Making Medical Screen Exam Complete: Yes Emergency Medical Condition: Yes Differential Diagnosis Medication refill, anxiety disorder, other Narrative Course This is an 82-year-old female here requesting a 1-2 day refill of her Klonopin. She fills her prescriptions at [facility] pharmacy which is closed on the weekend. This morning she took her last dose of Klonopin and realize she had forgotten to refill the medication. She has a prescription bottle with 5 refills remaining. the dates on the bottle confirm that she refilled her last script 1 month prior. She is a reliable patient. She will be given a prescription for 2 days of Klonopin. Diagnosis Primary Impression: Medication refill Referrals: Primary Care Physician Additional Instructions: Get your prescription filled [place] [facility] [place] [facility] [place] Scripts Clonazepam (Clonazepam) 1 Mg Tab 1 MG PO BID, #4 TAB 0 Refills Prov: Maria T Miguel 08/19/17 Disposition: 01 DISCHARGE HOME Condition: Stable Maria T Miguel Aug 19, 2017 20:27
== END 2017-08-19 20:44 | disposition home or self-care (01) ==
LOC: PHEFT 19:51
DX: F41.8 Other specified anxiety disorders (principal); R00.0 Tachycardia, unspecified; K21.9 Gastro-esophageal reflux disease without esophagitis; I10 Essential (primary) hypertension; Z76.0 Encounter for issue of repeat prescription; Z88.0 Allergy status to penicillin; Z88.5 Allergy status to narcotic agent
CPT/HCPCS: 99281